=== PATIENT | male | born 1995 | race American Indian/Alaskan Native ===

== ENCOUNTER 2020-08-21 11:09 | Emergency (ER) | payer SELFPAY ==
[2020-08-21 11:17] VITALS: BP 127/65
[2020-08-21] MEDS ORDERED: FAMOTIDINE 20 MG TAB PO ONE (11:19)
[2020-08-21] MEDS ORDERED: ONDANSETRON 4 MG ODT TAB PO ONE (11:19)
[2020-08-21] MEDS ORDERED: ALUM-MAG HYDROXIDE-SIMETHICONE 200-200-20MG/5ML ORAL LIQD 30 ML PO ONE (11:19)
[2020-08-21] MEDS ORDERED: LIDOCAINE VISCOUS 2% 15 ML ORAL LIQD PO ONE (11:20)
--- NOTE | 2020-08-21 11:47 | Emergency Department Report ---
ED General Adult HPI - General Chief complaint: Abdominal Pain Stated complaint: VOMITTING BLOOD Time Seen by Provider: 08/21/20 11:18 Source: patient Mode of arrival: Ambulatory Limitations: No Limitations - History of Present Illness Initial comments: Patient is a 25-year-old male presents emergency room complaints of epigastric abdominal pain that began 3 weeks ago. He states that it feels like a burning sensation. He states that he also has associated nausea vomiting. He states that he typically only experiences symptoms after he eats. He states after he eats he begins to feel the pain and then has an episode of vomiting. He states that occasionally he sees small streaks of blood after frequent vomiting. He denies any fever, diarrhea, hematochezia, melena, urinary symptoms. No past medical history. No allergies to medications. He endorses marijuana use. He denies alcohol or tobacco use. - Related Data Previous Rx's Medication Instructions Recorded Last Taken Type Famotidine [Pepcid] 40 mg PO QHS #30 tablet 08/21/20 Unknown Rx Ondansetron [Zofran Odt] 4 mg PO Q8HR PRN #12 tab.rapdis 08/21/20 Unknown Rx Sucralfate [Carafate] 1 gm PO ACHS 7 Days #21 tablet 08/21/20 Unknown Rx Allergies Allergy/AdvReac Type Severity Reaction Status Date / Time No Known Allergies Allergy Verified 08/21/20 11:11 ED Review of Systems ROS: Stated complaint: VOMITTING BLOOD Other details as noted in HPI Comment: All other systems reviewed and negative ED Past Medical Hx - Past Medical History Previous Medical History?: No - Surgical History Past Surgical History?: No - Social History Smoking Status: Never Smoker Substance Use Type: None - Medications Home Medications: Home Medications Medication Instructions Recorded Confirmed Last Taken Type Famotidine [Pepcid] 40 mg PO QHS #30 tablet 08/21/20 Unknown Rx Ondansetron [Zofran Odt] 4 mg PO Q8HR PRN #12 tab.rapdis 08/21/20 Unknown Rx Sucralfate [Carafate] 1 gm PO ACHS 7 Days #21 tablet 08/21/20 Unknown Rx ED Physical Exam - General Limitations: No Limitations General appearance: alert, in no apparent distress - Head Head exam: Present: atraumatic, normocephalic - Eye Eye exam: Present: normal appearance - ENT ENT exam: Present: mucous membranes moist - Respiratory Respiratory exam: Present: normal lung sounds bilaterally. Absent: respiratory distress, wheezes, rales, rhonchi, stridor, chest wall tenderness, accessory muscle use, decreased breath sounds, prolonged expiratory - Cardiovascular Cardiovascular Exam: Present: regular rate, normal rhythm, normal heart sounds. Absent: systolic murmur, diastolic murmur, rubs, gallop - GI/Abdominal GI/Abdominal exam: Present: soft, tenderness (mild epigastric), normal bowel sounds, other (negative murphys sign, no mcburneys point ttp, negative mccann turners and cullens sign, no peritoneal signs). Absent: distended, guarding, rebound, rigid - Neurological Exam Neurological exam: Present: alert, oriented X3 - Psychiatric Psychiatric exam: Present: normal affect, normal mood - Skin Skin exam: Present: warm, dry, intact ED Course Vital Signs 08/21/20 11:11 Temperature 98.2 F Pulse Rate 62 Respiratory 16 Rate Blood Pressure 127/65 O2 Sat by Pulse 98 Oximetry ED Medical Decision Making - Lab Data Result diagrams: 08/21/20 11:23 08/21/20 11:23 Lab Results 08/21/20 08/21/20 Range/Units 11:23 11:23 WBC 8.5 (4.5-11.0) K/mm3 RBC 4.65 (3.65-5.03) M/mm3 Hgb 14.0 (11.8-15.2) gm/dl Hct 42.2 (35.5-45.6) % MCV 91 (84-94) fl MCH 30 (28-32) pg MCHC 33 (32-34) % RDW 13.5 (13.2-15.2) % Plt Count 271 (140-440) K/mm3 Lymph % (Auto) 27.7 (13.4-35.0) % [place] % (Auto) 8.3 H (0.0-7.3) % Eos % (Auto) 10.9 H (0.0-4.3) % Baso % (Auto) 0.5 (0.0-1.8) % Lymph # (Auto) 2.3 (1.2-5.4) K/mm3 [place] # (Auto) 0.7 (0.0-0.8) K/mm3 Eos # (Auto) 0.9 H (0.0-0.4) K/mm3 Baso # (Auto) 0.0 (0.0-0.1) K/mm3 Seg Neutrophils % 52.6 (40.0-70.0) % Seg Neutrophils # 4.5 (1.8-7.7) K/mm3 Sodium 139 (137-145) mmol/L Potassium 4.2 (3.6-5.0) mmol/L Chloride 105.7 (98-107) mmol/L Carbon Dioxide 24 (22-30) mmol/L Anion Gap 14 mmol/L BUN 11 (9-20) mg/dL Creatinine 1.0 (0.8-1.3) mg/dL Estimated GFR > 60 ml/min BUN/Creatinine Ratio 11 % Glucose 104 H (75-100) mg/dL Calcium 8.8 (8.4-10.2) mg/dL Total Bilirubin 0.60 (0.1-1.2) mg/dL AST 21 (5-40) units/L ALT 31 (7-56) units/L Alkaline Phosphatase 73 (35-129) units/L Total Protein 7.3 (6.3-8.2) g/dL Albumin 4.2 (3.9-5) g/dL Albumin/Globulin Ratio 1.4 % Lipase 57 (13-60) units/L - Medical Decision Making Patient is a 25-year-old male presents emergency room complaints of epigastric abdominal pain that began 3 weeks ago. He states that it feels like a burning sensation. He states that he also has associated nausea vomiting. He states that he typically only experiences symptoms after he eats. He states after he eats he begins to feel the pain and then has an episode of vomiting. He states that occasionally he sees small streaks of blood after frequent vomiting. He denies any fever, diarrhea, hematochezia, melena, urinary symptoms. No past medical history. No allergies to medications. He endorses marijuana use. He denies alcohol or tobacco use. Vitals are normal. On exam patient has mild epigastric tender palpation, no guarding, no rebound, no rigidity, normal bowel sounds, no peritoneal signs, negative Vasquez sign, negative McBurney's point tenderness, negative Mccann Estrada and Jorge sign. Labs are normal. Patient given p.o. medications while in the emergency department and symptoms improved and he was feeling much better ready to go home, he was able to tolerate p.o. intake without difficulty and had no further episodes of vomiting while in the emergency department. Symptoms likely related to ulcers versus GERD. Patient be referred to GI. Patient given prescription for Pepcid, Carafate, Zofran. Advised patient Please take medication as prescribed. Increase your water intake. Please follow the diet for acid reflux/ulcers. Follow-up with a GI doctor. Follow-up with your primary care doctor. Return to emergency room for new or worsening symptoms. Critical care attestation.: If time is entered above; I have spent that time in minutes in the direct care of this critically ill patient, excluding procedure time. ED Disposition Clinical Impression: Postprandial epigastric pain Disposition: TO HOME OR SELFCARE Is pt being admited?: No Does the pt Need Aspirin: No Condition: Stable Instructions: Peptic Ulcer, Food Choices for Gastroesophageal Reflux Disease, Adult Additional Instructions: Please take medication as prescribed. Increase your water intake. Please follow the diet for acid reflux/ulcers. Follow-up with a GI doctor. Follow-up with your primary care doctor. Return to emergency room for new or worsening symptoms. Prescriptions: Famotidine [Pepcid] 40 mg PO QHS #30 tablet Sucralfate [Carafate] 1 gm PO ACHS 7 Days #21 tablet Ondansetron [Zofran Odt] 4 mg PO Q8HR PRN #12 tab.rapdis PRN Reason: nausea/vomiting Referrals: PRIMARY CARE, [Primary Care Provider] - 2-3 Days [facility] [Provider Group] - 2-3 Days Time of Disposition: 12:33 Print Language: PASHTO
[2020-08-21 12:05] LABS: Basophils % (Auto) 0.5 % (0.0-1.8); Eosinophils # (Auto) 0.9 K/mm3 (0.0-0.4); Eosinophils % (Auto) 10.9 % (0.0-4.3); Hematocrit 42.2 % (35.5-45.6); Lymphocytes # (Auto) 2.3 K/mm3 (1.2-5.4); Lymphocytes % (Auto) 27.7 % (13.4-35.0); Mean Corpuscular HGB Conc 33 % (32-34); Mean Corpuscular Volume 91 fl (84-94); Monocytes # (Auto) 0.7 K/mm3 (0.0-0.8); Monocytes % (Auto) 8.3 % (0.0-7.3); Platelet Count 271 K/mm3 (140-440); Red Blood Count 4.65 M/mm3 (3.65-5.03); Red Cell Distribution Width 13.5 % (13.2-15.2)
[2020-08-21 12:15] LABS: Alanine Aminotransferase 31 units/L (7-56); Albumin 4.2 g/dL (3.9-5); BUN/Creatinine Ratio 11; Blood Urea Nitrogen 11 mg/dL (9-20); Calcium 8.8 mg/dL (8.4-10.2); Hemolysis Index 26
== END 2020-08-21 12:44 | disposition home or self-care (01) ==
LOC: ED 11:09
DX: R10.13 Epigastric pain (principal); Z79.899 Other long term (current) drug therapy
CPT/HCPCS: 36415; 80053; 83690; 85025; 99283; Q0162